=== PATIENT | female | born 1970 ===

== ENCOUNTER → 2020-08-01 | Outpatient (CLI) | payer OTHER | LOC: LAB 12:39 | PROVIDERS: ATTEND Student in an Organized Health Care Education/Training Program | DX: Z01.812 Encounter for preprocedural laboratory examination (principal); Z20.822 Contact with and (suspected) exposure to COVID-19 ==

== ENCOUNTER → 2020-08-06 | Outpatient (CLI) | payer OTHER ==
[~2020-08-06] VITALS: Ht 162.6 cm; Wt 90.7 kg
[~2020-08-06] MED LIST: ALBUTEROL2.5 MG/0.1 INH; DUPIXENT300 MG/2 M SUBQ; NAPROSYN500 M1 PO; PRILOSEC OTC20 MG PO
--- NOTE | 2020-08-08 18:06 | PATH ---
[facility] [place] [address] PATHOLOGY RPT PROCEDURE Name: EMERITA MEAD Room #: REG JUAN Sloan.#: [id number] Admission: 08/06/20 Date of : 68 Discharge: Report #: [id number] Path Case #: [id number] [facility] Accession Number: [id number] . 01 Material submitted: . PART A: duodenum - DUODENAL BX R/O SPRUE PART B: gastrointestinal site - GASTRIC BX R/O H. PYLORI PART C: esophagus - DISTAL ESOPHAGUS BX R/O LANDIS'S. Modifiers: distal PART D: colon - RANDOM COLON BX R/O MICROSCOPIC COLITIS . 01 Clinical history: . SCREENING, CA, GASTROESOPHAGEAL REFLUX ESOPHAGITIS,DIVERTICULOSIS,ANAL FISSURE,EXTERNAL HEMORRHOIDS . 02 Diagnosis: A. Small bowel mucosa, duodenum, rule out sprue, endoscopic biopsy: - No diagnostic abnormalities present. - Negative for villous blunting or increase in intraepithelial lymphocytes. . B. Gastric mucosa, gastric, rule out H. pylori, endoscopic biopsy: - Mild reactive gastropathy. - Negative for intestinal metaplasia or atrophy. -Negative for Helicobacter pylori (properly controlled immunohistochemical stain performed). . C. Gastroesophageal mucosa, distal esophagus, endoscopic biopsy: - Mild chronic inflammation. - Negative for intestinal metaplasia or dysplasia. . D. Large intestinal mucosa, random, rule out microscopic colitis, endoscopic biopsy: - Mild focal colitis. Please see comment. - Rare pigmented macrophages within lamina propria. - Negative for dysplasia or malignancy. (IUV:pit 08/08/2020) QTP 08/08/2020 1332 Local . 02 Comment: Sections of the colonic mucosa designated "random colon" show focal cryptitis, and a moderately cellular lamina propria composed predominantly of lymphocytes and plasma cells and occasional eosinophils. Surface ulceration is not identified. There are no crypt abscesses, granulomas or viral inclusions. The process affects all the fragments with a similar intensity. Given the description, the differential diagnosis includes focal mild self-limited episode of colitis, focal infectious-type of colitis, acute diverticulitis, medication/drug induced colitis amongst [address] [address] PATHOLOGY RPT PROCEDURE Name: EMERITA MEAD Room #: REG JUAN Andrea#: [id number] Admission: 08/06/20 Date of : 68 Discharge: Report #: [id number] Path Case #: [id number] other possibilities. Please correlate with clinical as well as endoscopic findings. (IUV:pit 08/08/2020) . 02 Electronically signed: . Niki Dominguez MD, Pathologist NPI- [id number] . 01 Gross description: . A. The specimen is received in formalin, labeled "Emerita [place], biopsy duodenal, R/O sprue". Received are five segments of pale miranda soft tissue measuring 0.3 cm each in maximum dimensions. The specimen is submitted entirely in cassette A1. . B. The specimen is received in formalin, labeled "Emerita [place], biopsy gastric, R/O H. pylori". Received are three segments of pale miranda soft tissue ranging in size from 0.2 to 0.7 cm in maximum dimensions. The specimen is submitted entirely in cassette B1. . C. The specimen is received in formalin, labeled "Emerita [place], biopsy distal esophagus, R/O Landis's". Received are two segments of pale miranda soft tissue ranging in size from 0.3 to 0.4 cm in maximum dimensions. The specimen is submitted entirely in cassette C1. . D. The specimen is received in formalin, labeled "Emerita [place], biopsy random, R/O my copy colitis". Received are four segments of pale miranda soft tissue ranging in size from 0.3 to 0.9 cm in maximum dimensions. The specimen is submitted entirely in cassette D1. ([facility]AA; 08/07/2020) QA/[facility] 08/07/2020 1415 Local . 02 Pathologist provided ICD-10: K31.9, K20.90, K52.9, Z12.11 . 02 CPT . 162702, 370528, 543889, 249459, [id number] Specimen Comment: A courtesy copy of this report has been sent to [phone], [phone] Specimen Comment: [id number] Specimen Comment: Report sent to / DR LYNN Performed at: 01 [facility] [address] [place] [address] [address], [place], [place] [id number] MD Dinesh Mcneill MD Phone: [phone] Performed at: [address] [id number] MD Niki Dominguez MD Phone: [phone]
--- NOTE | 2020-08-11 13:34 | P ---
[facility] [place] [address] [address] PROCEDURE REPORT Name: VIVIANA MEAD Room #: REG JUAN Andrea#: [id number] Admission: 08/06/20 Attend Phys: Antione Reyes Discharge: Date of : 68 Report #: [id number] THIS REPORT FOR: cc: Adolfo Franklin MD, Bradley MD McElhinney, Christian C. MD ~ DATE OF SERVICE: 08/06/2020 PROCEDURE PERFORMED: Colonoscopy with biopsies. HISTORY OF PRESENT ILLNESS: The patient is a 50-year-old female who presents today for routine screening colonoscopy. No previous history of colonoscopy. No family history of colon cancer. The patient does report loose stools at times. DESCRIPTION OF PROCEDURE: The risks and benefits of the procedure were explained to the patient, those risks including but not limited to bleeding, perforation and the risk of sedation. She understood these risks and gave informed consent. Sedation was given using propofol per anesthesia. Next, a digital rectal exam was initially performed, which was normal. Next, using a standard Olympus colonoscope, the scope was placed in the patient's anus and advanced under direct vision to the cecum. The overall prep was excellent. The cecum and ileocecal valve were normal in appearance. The ascending, transverse and descending colon were normal. A few diverticula were noted in the sigmoid colon, otherwise normal. Random biopsies were obtained today to rule out the possibility of microscopic colitis. The rectal mucosa was normal. On retroflexion, no abnormalities were noted. On exam of the anal canal, a small anal fissure was noted with a single small external hemorrhoid. Scope was then withdrawn and the procedure terminated. The patient tolerated the procedure well. IMPRESSION: 1. Sigmoid diverticulosis. 2. Small anal fissure. 3. Small internal hemorrhoids. 4. Otherwise, normal colonoscopy. RECOMMENDATIONS: 1. Analpram b.i.d. for 1 week and then p.r.n. 2. Await biopsy results. 3. Repeat colonoscopy in 10 years. [facility] [address] [place] [address] PROCEDURE REPORT Name: VIVIANA MEAD Room #: [facility] JUAN Andrea#: [id number] Admission: 08/06/20 Attend Phys: Antione Reyes Discharge: Date of : 68 Report #: [id number] Thank you for allowing me to participate in her care. <ELECTRONICALLY SIGNED> By: Antione Luna MD 08/11/20 1334 1123 1315 Antione Luna MD /nt
--- NOTE | 2020-08-11 13:34 | P ---
[facility] [place] [address] [place] [address] PROCEDURE REPORT Name: VIVIANA MEAD Room #: REG JUAN Andrea#: [id number] Admission: 08/06/20 Attend Phys: Antione Reyes Discharge: Date of : 68 Report #: [id number] THIS REPORT FOR: cc: Adolfo Franklin MD, Bradley MD McElhinney, Christian C. MD ~ DATE OF SERVICE: 08/06/2020 PROCEDURE PERFORMED: Upper endoscopy with biopsies. HISTORY OF PRESENT ILLNESS: The patient is a 50-year-old female with a history of gastroesophageal reflux disease, taking Prilosec on a daily basis. Despite this, reports intermittent heartburn as well as increased belching. Denies any dysphagia, no previous history of upper endoscopy. She also reports intermittent diarrhea symptoms. DESCRIPTION OF PROCEDURE: The risks and benefits of the procedure were explained to the patient, those risks including but not limited to bleeding, perforation and the risk of sedation. She understood these risks and gave informed consent. Sedation was given using propofol per anesthesia. Next, using a standard Olympus upper endoscope, the scope was placed in the patient's mouth and advanced under direct vision through the esophagus, stomach and into the second portion of the duodenum. The larynx was normal in appearance. The upper and mid esophagus were normal. In the distal esophagus at the GE junction, grade B erosive esophagitis was noted, also a possible short segment of Ochoa's was noted. Biopsies were obtained. Overall, the gastric mucosa was normal. Because of the patient's symptoms, biopsies were obtained to rule out possible H. pylori. The pylorus was normal and patent. The duodenal bulb, first and second portion were all normal. Biopsies were also obtained to rule out the possibility of celiac sprue. The scope was then withdrawn and the procedure terminated. The patient tolerated the procedure well. IMPRESSION: 1. Grade B erosive esophagitis. 2. Possible Ochoa's esophagus. 3. Otherwise, normal upper endoscopy. RECOMMENDATIONS: 1. Await biopsy. 2. We will increase Prilosec to b.i.d. 3. Colonoscopy next today. [facility] [address] [place] [address] PROCEDURE REPORT Name: VIVIANA MEAD Room #: REG CL Zully#: [id number] Admission: 08/06/20 Attend Phys: Antione Reyes Discharge: Date of : 68 Report #: [id number] Thank you for allowing me to participate in her care. <ELECTRONICALLY SIGNED> By: Antione Luna MD 08/11/20 1334 1101 1242 Antione Luna MD /nt
== END | disposition home or self-care (01) ==
LOC: GI 09:21
PROVIDERS: ATTEND Specialist
DX: Z12.11 Encounter for screening for malignant neoplasm of colon (principal); K57.30 Diverticulosis of large intestine without perforation or abscess without bleeding; K64.4 Residual hemorrhoidal skin tags; K21.00 Gastro-esophageal reflux disease with esophagitis, without bleeding; K60.2 Anal fissure, unspecified; J45.909 Unspecified asthma, uncomplicated; Z91.040 Latex allergy status; K52.9 Noninfective gastroenteritis and colitis, unspecified
CPT/HCPCS: 62110; 62900